=== PATIENT | male | born 1970 | race Caucasian/White ===

== ENCOUNTER 2023-07-03 22:21 | Emergency (ER) | payer OTHER, SELFPAY ==
[2023-07-03 22:26] VITALS: BP 164/98; PULSE 116; RESP 20; TEMP 36.4; O2SAT 98
--- NOTE | 2023-07-03 22:34 | ED.GENADULT ---
HPI - General Adult General Date Seen: 07/03/23 Chief complaint: Epistaxis/Nosebleed Stated complaint: nose bleed last 40mins Time Seen by Provider: 07/03/23 22:34 History of Present Illness HPI narrative: This is a 52-year-old male who presents to the ER tonight for evaluation of epistaxis. He apparently had an episode of epistaxis that occurred earlier today when he was at home. It began spontaneously. It lasted about 15 minutes. He had another episode of nose bleeding that started about 930 tonight. He is otherwise generally healthy. He takes no medications and no meds that then his blood. He has not had any recent other unusual bleeding or bruising. In fact he actually gave blood today he and had a normal hematocrit of for his blood donation. At about 930 started bleeding again, predominantly from his left nostril but also little bit from his right. He did have some blood going to the back of his throat and spit out some large clots right about the time he arrived at triage. He has been trying to apply direct pressure to this which she part of the bottom of his nose, but the bleeding will in a quite stop. No nasal trauma. No other recent infection. No digital injuries. Related Data Home Medications Medication Instructions Recorded Confirmed rosuvastatin 20 mg tablet 20 mg PO QPM 07/03/23 07/03/23 Allergies Allergy/AdvReac Type Severity Reaction Status Date / Time No Known Drug Allergies Allergy Verified 07/03/23 22:30 Exam Narrative: Exam Narrative: Constitutional: Appears well-developed and well-nourished. Alert. Conversant. Non toxic. HENT: Head: Atraumatic. Nose: Extra Nose normal. No signs of trauma. Holding a clamp on his nose. No active bleeding. Mouth/Throat: Oral mucosa is clear and moist. no trismus. Pharynx normal. Tonsils symmetric. No tonsillar enlargement, erythema, or exudate. Eyes: Conjunctivae normal. EOM normal. Pupils equal, round, and reactive to light. No scleral icterus. Neck: Normal range of motion. Neck supple. No tracheal deviation present. Cardiovascular: Normal rate, regular rhythm. No gallop. No friction rub. No murmur heard. Normal cap refill. Pulmonary/Chest: Effort normal. No stridor. No respiratory distress. Musculoskeletal: RUE: Normal range of motion. No tenderness. No deformity LUE: Normal range of motion. No tenderness. No deformity RLE: Normal range of motion. No edema. No tenderness. No deformity LLE: Normal range of motion. No edema. No tenderness. No deformity Neurological: Alert and oriented to person, place, and time. Normal strength. CN II-VII intact. No sensory deficit. GCS eye subscore is 4. GCS verbal subscore is 5. GCS motor subscore is 6. Normal coordination Skin: Skin is warm and dry. No rash noted. No pallor. Normal capillary refill. Psychiatric: Normal mood. Normal affect. Const: Vital Signs, click to edit/add: Vital Signs - 24 hr 07/03/23 22:26 Temperature 97.6 F Pulse Rate [Pulse Oximeter] 116 H Respiratory Rate 20 Blood Pressure [Le ft Upper Arm] 164/98 H Pulse Oximetry 98 Oxygen Delivery Me thod Room Air Course Course ED Course: Initial evaluation performed. No active bleeding but does have a significant amount of wet liquid blood in both nostrils. I had the patient gently expressed close the blood but still not able to visualize any definitive site of bleeding. Afrin 2 sprays into each nostril applied. I was allowing 10 minutes for the Afrin to work. The patient had another episode we had some posterior bleeding down the back of his throat. He spit up a small clot of blood. After this he BP began to feel dizzy and sweaty and lightheaded. He was seeing stars. Suspect vasovagal event. I laid him flat he was feeling much better. Sweatiness resolved Re-evaluations shows no active bleeding. Still not able to see a good side of bleeding because of blood in the nares. Cotton soaked in 1% lidocaine with epi-total of 5 mL applied into both nares. Recheck-feeling much better. All of his dizziness is completely resolved. I removed the cotton balls from his nose. Re-evaluation shows no ongoing blood in the nares. There is no visible anterior site of bleeding in either nares. Septum looks good. Superior, lateral, inferior pate look good. Suspect this is probably a bleed from the posterior naris. No active bleeding. No posterior or pharyngeal bleeding. Recheck-patient did well with a vigorous ambulation trial. No recurrent bleeding. Vital Signs Vital signs: Initial Vital Signs Temperature 97.6 F 07/03/23 22:26 Temperature Source Temporal Artery Scan 07/03/23 22:26 Pulse Rate 116 H 07/03/23 22:26 Respiratory Rate 20 07/03/23 22:26 Blood Pressure 164/98 H 07/03/23 22:26 Blood Pressure Mean 120 H 07/03/23 22:26 Blood Pressure Position Sitting 07/03/23 22:26 Pulse Oximetry 98 07/03/23 22:26 Oxygen Delivery Method Room Air 07/03/23 22:26 Vital Signs Temperature 97.6 F 07/03/23 22:26 Pulse Rate 116 H 07/03/23 22:26 Respiratory Rate 20 07/03/23 22:26 Blood Pressure 164/98 H 07/03/23 22:26 Pulse Oximetry 98 07/03/23 22:26 Oxygen Delivery Method Room Air 07/03/23 22:26 Temperature 97.6 F 07/03/23 22:26 Pulse Rate 116 H 07/03/23 22:26 Respiratory Rate 20 07/03/23 22:26 Blood Pressure 164/98 H 07/03/23 22:26 Pulse Oximetry 98 07/03/23 22:26 Oxygen Delivery Method Room Air 07/03/23 22:26 Medications Administered Medications: Generic Name Dose Route Start Last Admin Trade Name Freq PRN Reason Stop Dose Admin Lidocaine/Epinephrine 20 ml 07/03/23 22:35 07/03/23 23:07 Lidocaine 1%-Epi 1:100,000 20 Ml INFILTRATI 07/03/23 22:36 20 ml ONCE ONE Administration Oxymetazoline HCl 1 spray 07/03/23 22:35 07/03/23 23:07 Oxymetazoline 0.05% Nasal [place] NOSTRIL-B 1 spray BID PRN Administration Silver Nitrate/Potassium Nitrate 1 each 07/03/23 22:35 07/03/23 23:06 Silver Nitrate Applicator 1 Each Stick..Ea. 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 The patient is otherwise healthy. No history of coagulopathy. Not anticoagulated. Bleeding was ultimately controlled here after application of topical vasoconstrictors. Careful inspection in the anterior nares does not reveal a source of bleeding. Suspect this is probably a posterior bleed. Discussed with the patient and his that options would be to monitor carefully as is. We seemed to have been able to achieve hemostasis. Discussed that there is a risk for rebleeding. We also discussed possible packing with a rhino rocket. Discussed the discomfort and risks of the packing. At this point the patient and his are very comfortable discharging home without packing. Precautions for return to the ER with recurrent bleeding for reviewed. Questions answered. They are eager for discharge. Discharge Plan Discharge Clinical Impression: Epistaxis Patient Disposition: Home, Self-Care Condition: Stable Instructions: Nosebleed (ED) Additional Instructions: As we discussed, if your nose starts to bleed again, applied direct pressure with a nasal clamp for your fingers for 10 minutes in the your head forward. If the bleeding does not stop with that intervention, or if you have any other concerns, please come back to the ER to be rechecked. For the next couple of days avoid strenuous physical exercise or any activities that might lead to an injury to your nose. Otherwise eat a normal diet. Regular fluid intake. Prescriptions: No Action rosuvastatin 20 mg tablet 20 mg PO QPM Follow Up/Referrals: James Kemp [Primary Care Provider] - Stand Alone Forms: [employer] Info Instructions
[2023-07-03] MEDS: SILVER NITRATE APPLICATOR 1 EACH STICK..EA. TOPICAL (23:06)
[2023-07-03] MEDS: OXYMETAZOLINE 0.05% NASAL SPRAY 1 SPRAY NOSTRIL-B (23:07)
== END 2023-07-04 00:10 | disposition home or self-care (01) ==
PROVIDERS: Emergency Provider Emergency Medicine; PCP Internal Medicine
DX: R04.0 Epistaxis (principal)
CPT/HCPCS: 99282; 99283; A9270

== ENCOUNTER 2024-07-02 08:15 | Outpatient (RCR) | payer BC, OTHER, SELFPAY | END 2024-10-30 23:59 | disposition home or self-care (01) | PROVIDERS: PCP Internal Medicine; Visit Provider Student in an Organized Health Care Education/Training Program | DX: S76.011A Strain of muscle, fascia and tendon of right hip, initial encounter (principal); M54.41 Lumbago with sciatica, right side; Z51.89 Encounter for other specified aftercare | CPT/HCPCS: 97110; 97140; 97162 ==